=== PATIENT | male | born 1965 | race Caucasian/White ===

== ENCOUNTER 2022-12-02 11:36 | Emergency (ER) | payer OTHER ==
[2022-12-02] MEDS ORDERED: Morphine 4 MG/ML Syringe IVPUSH STA ×3 (12:24→15:42)
[2022-12-02] MEDS ORDERED: Sodium Chloride 0.9% 1,000 ML IV STA ×2 (12:34→14:35)
[2022-12-02 13:31] VITALS: BP 131/63; PULSE 68
[2022-12-02 14:44] LABS: CARBON DIOXIDE,CO2 27.9 mmol/L (21.0-32.0); POTASSIUM,K 3.7 mmol/L (3.5-5.1)
[2022-12-02] MEDS ORDERED: Iopamidol 755 MG/ML 500 ML Multipack Bottle IVPUSH ONE (15:05)
[2022-12-02] MEDS ORDERED: Morphine 4 MG/ML Syringe ONE (15:42)
[2022-12-02] MEDS ORDERED: cefTRIAXone 1 GM Vial IM STA (16:44)
[2022-12-02] MEDS ORDERED: Lidocaine 1% 5 ML VIAL INJECT ONE (16:58)
== END 2022-12-02 17:28 | disposition home or self-care (01) ==
LOC: MW.ED 11:36
DX: M79.81 Nontraumatic hematoma of soft tissue (principal); N28.9 Disorder of kidney and ureter, unspecified; R81 Glycosuria; D72.829 Elevated white blood cell count, unspecified; I10 Essential (primary) hypertension; E66.9 Obesity, unspecified; Z79.899 Other long term (current) drug therapy; Z68.28 Body mass index [BMI] 28.0-28.9, adult
CPT/HCPCS: 36415; 74177; 76870; 80053; 81001; 83605; 85025; 87070; 87077; 87186; 87205; 93976; 96361; 96372; 96374; 96376; 99284; J0696; J2270; J7030; Q9967; J3490